=== PATIENT | female | born 1985 | race Caucasian/White ===

== ENCOUNTER 2022-11-25 14:20 | Outpatient (CLI) | payer BC, MEDICAID, SELFPAY ==
--- NOTE | ~2022-11-25 | XR_ITS ---
EXAMINATION: XR scanogram DATE: 11/25/2022 14:53 INDICATION: Right knee arthritis TECHNIQUE: Standing AP view of the bilateral lower limbs from the and hips through the feet were obta ined on 4 overlapping cranial to caudal images. COMPARISON: None. FINDINGS: There is rightward pelvic tilt with the apex of the left femoral head lying approximately 1.6 cm ceph alad to the apex of the right femoral head. The left knee joint measured at the apex of the intercond ylar eminence lies 4 mm cephalad to the right. The midpoint of the talar dome on the right lies 3 mm cephalad to the left. There is severe joint space narrowing the medial compartment of the right knee resulting in minimal right genu varum. IMPRESSION: 1. Likely discrepancy with apex of the left femoral head 1.6 similar cephalad to the right. 2. Severe osteoarthritis the medial compartment right knee with minimal right genu varum. Reviewed, dictated and finalized at location A. IMPRESSION: 1. Likely discrepancy with apex of the left femoral head 1.6 similar cephalad t o the right. 2. Severe osteoarthritis the medial compartment right knee with minimal right g enu varum.
== END 2022-11-25 14:21 | disposition home or self-care (01) ==
LOC: ANHIMG 14:32
PROVIDERS: Visit Provider Orthopaedic Surgery
DX: M08.961 Juvenile arthritis, unspecified, right knee (principal); M17.11 Unilateral primary osteoarthritis, right knee
CPT/HCPCS: 77073